=== PATIENT | male | born 1945 | race Caucasian/White ===

== ENCOUNTER → 2018-05-03 | Outpatient (CLI) | payer MEDICARE, OTHER | END | disposition home or self-care (01) | LOC: CFH 12:43 | DX: Z12.2 Encounter for screening for malignant neoplasm of respiratory organs (principal); J43.8 Other emphysema; I77.810 Thoracic aortic ectasia; Z87.891 Personal history of nicotine dependence | CPT/HCPCS: G0297 ==

== ENCOUNTER → 2018-05-31 | Outpatient (CLI) | payer MEDICARE, OTHER ==
[~2018-05-31] MED LIST: REGADENOSON 0.4 MG/5 ML SYRINGE ONE
== END | disposition home or self-care (01) ==
LOC: CFH 07:29
PROVIDERS: ATTEND Internal Medicine Cardiovascular Disease
DX: I21.19 ST elevation (STEMI) myocardial infarction involving other coronary artery of inferior wall (principal); I34.0 Nonrheumatic mitral (valve) insufficiency; I45.10 Unspecified right bundle-branch block; I10 Essential (primary) hypertension; E78.5 Hyperlipidemia, unspecified; E11.9 Type 2 diabetes mellitus without complications; Z95.1 Presence of aortocoronary bypass graft
CPT/HCPCS: 78452; 93017; 93306; A9502; J2785

== ENCOUNTER 2020-03-20 07:19 | Day surgery (SDC) | payer OTHER, MEDICARE ==
[~2020-03-20] VITALS: Ht 180.3 cm; Wt 95.8 kg
[2020-03-20] MEDS ORDERED: MECO10005 PO (07:52)
[2020-03-20] MEDS ORDERED: ATOR40TA78 PO (07:57)
[2020-03-20] MEDS ORDERED: GLIP10TA13 PO (07:57)
[2020-03-20] MEDS ORDERED: CALC-175 PO (07:57)
[2020-03-20] MEDS ORDERED: CHOL10003 PO (07:57)
[2020-03-20] MEDS ORDERED: LISI40TA PO (08:02)
[2020-03-20] MEDS ORDERED: ASPI-650 PO (08:02)
[2020-03-20] MEDS ORDERED: AMLO-150 PO (08:02)
[2020-03-20] MEDS ORDERED: INSU300I3 SQ (08:02)
[2020-03-20] MEDS ORDERED: ATEN50TA41 PO (08:02)
[2020-03-20] MEDS ORDERED: NITR0.4T28 SL (08:02)
[2020-03-20 08:12] VITALS: BP 115/71
[2020-03-20 08:16] LABS: BASOPHILS % (AUTO) 1 % (0-1); EOSINOPHILS % (AUTO) 1 % (1-7); LYMPHOCYTES % (AUTO) 14 % (22-44); MEAN CORPUSCULAR HGB CONC 34.4 g/dL (33.2-36.2); MEAN PLATELET VOLUME 7.7 fL (7.4-10.4); MONOCYTES % (AUTO) 8 % (2-9); NEUTROPHILS % (AUTO) 76 % (42-75); PLATELET COUNT 205 x10^3/uL (130-400); RED BLOOD COUNT 4.98 x10^6/uL (4.38-5.82); RED CELL DISTRIBUTION WIDTH 13.6 % (9.4-14.8)
[2020-03-20 08:23] LABS: ANION GAP 3 mmol/L (5-15); CALCIUM 8.5 mg/dL (8.5-10.1); CHLORIDE 111 mmol/L (98-107); CREATININE 1.01 mg/dL (0.7-1.3)
[2020-03-20 08:30] LABS: MD NO
[2020-03-20] MEDS ORDERED: BIVALIRUDIN 250 MG ONE (08:36)
[2020-03-20] MEDS ORDERED: NITROGLYCERIN 5 MG/ML, 10ML ONE (08:36)
[2020-03-20] MEDS ORDERED: FENTANYL PF 100 MCG/2ML ONE (08:36)
[2020-03-20] MEDS ORDERED: TICAGRELOR 90 MG TABLET ONE (08:36)
[2020-03-20] MEDS ORDERED: VERAPAMIL 2.5 MG/ML, 2ML ONE (08:36)
[2020-03-20] MEDS ORDERED: HEPARIN 1,000 UNITS/ML, 10ML ONE (08:36)
[2020-03-20] MEDS ORDERED: MIDAZOLAM 1 MG/ML, 5ML ONE (08:36)
[2020-03-20] MEDS ORDERED: LIDOCAINE 2%, 20ML ONE (08:37)
== END 2020-03-20 14:05 | disposition home or self-care (01) ==
LOC: CACL 07:19
PROVIDERS: ATTEND Internal Medicine Cardiovascular Disease
DX: I25.810 Atherosclerosis of coronary artery bypass graft(s) without angina pectoris (principal); E11.9 Type 2 diabetes mellitus without complications; E78.5 Hyperlipidemia, unspecified; I10 Essential (primary) hypertension; Z88.1 Allergy status to other antibiotic agents; Z88.2 Allergy status to sulfonamides; Z88.5 Allergy status to narcotic agent; Z98.41 Cataract extraction status, right eye; Z98.42 Cataract extraction status, left eye; Z79.82 Long term (current) use of aspirin; Z79.84 Long term (current) use of oral hypoglycemic drugs; Z79.899 Other long term (current) drug therapy; Z98.890 Other specified postprocedural states
CPT/HCPCS: 36415; 80048; 85025; 93459; 93567; 99156; 99157; C1760; C1769; C1887; C1894; J2250; J3010; Q9967; J0583; J1644